=== PATIENT | male | born 1975 | race African-American/Black ===

== ENCOUNTER 2018-03-23 18:51 | Emergency (ER) | payer MEDICAID ==
[~2018-03-23] VITALS: Ht 175.3 cm; Wt 82.0 kg
[~2018-03-23 18:51] MED LIST: ACET-2178; IBUP200C48
[2018-03-23 18:59] VITALS: BP 132/87
== END 2018-03-23 22:30 | disposition left against medical advice (07) ==
LOC: ER 22:12
DX: R20.2 Paresthesia of skin (principal)
CPT/HCPCS: 82962; 99282

== ENCOUNTER 2018-06-08 14:30 | Emergency (ER) | payer MEDICAID ==
[~2018-06-08 14:30] MED LIST changes: +IBUP-2437; -IBUP200C48
== END 2018-06-08 17:27 | disposition left against medical advice (07) ==
LOC: ER 14:30
DX: R03.0 Elevated blood-pressure reading, without diagnosis of hypertension (principal); Z53.21 Procedure and treatment not carried out due to patient leaving prior to being seen by health care provider

== ENCOUNTER 2018-07-01 10:35 | Emergency (ER) | payer MEDICAID ==
[~2018-07-01] VITALS: Ht 175.3 cm; Wt 75.7 kg
[2018-07-01 10:41] VITALS: BP 101/68
== END 2018-07-01 11:00 | disposition left against medical advice (07) ==
LOC: ER 11:00
DX: Z53.21 Procedure and treatment not carried out due to patient leaving prior to being seen by health care provider (principal); F17.200 Nicotine dependence, unspecified, uncomplicated